=== PATIENT | male | born 2000 | race Caucasian/White ===

== ENCOUNTER 2018-01-15 02:50 | Emergency (ER) | payer BC ==
--- NOTE | 2018-01-15 02:55 | EDPHY ---
H & P Time Seen by Provider: 01/15/18 02:54 HPI/ROS: HPI CHIEF COMPLAINT: Alcohol Intoxication HISTORY OF PRESENT ILLNESS: 17-year-old male presents emergency room by EMS after was found highly intoxicated with alcohol and unable to be woken up by his roommates. EMS had a very hard time waking him up. Patient reports he had 10 drinks this evening. Patient presents emergency room highly intoxicated alcohol but alert. Slurring speech. Smells of alcohol and has vomit on his shirt. Past Medical History: Denies medical history Past Surgical History: Denies surgical history Social History: Large amount of alcohol this evening. Family History: Noncontributory ROS REVIEW OF SYSTEMS: A comprehensive 10 point review of systems is otherwise negative aside from elements mentioned in the history of present illness. Exam Constitutional Intoxicated, triage nursing summary reviewed, vital signs reviewed, Sleepy, smells of alcohol Eyes normal conjunctivae and sclera, horizontal beating nystagmus consistent acute alcohol intoxication, otherwise pupils equal and react to light HENT normal inspection, atraumatic, moist mucus membranes, no epistaxis, neck supple/ no meningismus, no raccoon eyes. Respiratory clear to auscultation bilaterally, normal breath sounds, no respiratory distress, no wheezing. Cardiovascular rate normal, regular rhythm, no murmur, no edema, distal pulses normal. Gastrointestinal soft, non-tender, no rebound, no guarding, normal bowel sounds, no distension, no pulsatile mass. Genitourinary no CVA tenderness. Musculoskeletal no midline vertebral tenderness, full range of motion, no calf swelling, no tenderness of extremities, no meningismus, good pulses, neurovascularly intact. Skin pink, warm, & dry, no rash, skin atraumatic. Neurologic sleepy, intoxicated with alcohol,, alert and oriented x 3, AAOx3, moves all 4 extremities equally, motor intact, sensory intact, CN II-XII intact , , normal vision, normal speech. Psychiatric normal mood/affect. Heme/Lymph/Immune no lymphadenopathy. Differential Diagnosis: Includes but is not limited to in a particular order acute alcohol intoxication, alcohol abuse, dehydration, electrolyte abnormality , nausea vomiting from acute alcohol intoxication Medical Decision Making: Plan for this patient breath alcohol, monitor sobriety. Monitor for worsening sedation from alcohol. Monitor nausea vomiting. Re-evaluation: Breath alcohol 165. At 2:56 a.m.. 0700AM: Patient sober. NAd. Resting. Ambulatory, has safe ride home. Source: Patient, EMS Constitutional: Initial Vital Signs Temperature (C) 36.7 C 01/15/18 02:56 Heart Rate 74 01/15/18 02:56 Respiratory Rate 16 01/15/18 02:56 Blood Pressure 123/74 H 01/15/18 02:56 O2 Sat (%) 96 01/15/18 02:56 O2 Delivery Mode Room Air Allergies/Adverse Reactions: No Known Allergies Allergy (Unverified 01/15/18 02:56) Home Medications: Medication Instructions Recorded NK [No Known Home Meds] 01/15/18 Medical Decision Making - Data Points Medications Given: Discontinued Medications Ondansetron HCl (Zofran Odt) 4 mg PO EDNOW ONE Stop: 01/15/18 03:15 Last Admin: 01/15/18 03:16 Dose: 4 mg Departure - Departure Disposition: Home, Routine, Self-Care Clinical Impression: Alcoholic intoxication Qualifiers: Complication of substance-induced condition: uncomplicated Qualified Code(s): F10.920 - Alcohol use, unspecified with intoxication, uncomplicated Condition: Good Instructions: Alcohol Intoxication (ED), Abuse of Alcohol (ED) Referrals: Patient,NotPresent [Unknown] - As per Instructions
[2018-01-15] MEDS ORDERED: ONDANSETRON DISINTEGRATING 4 MG TAB PO ONE ×2 (03:14)
[2018-01-15 06:10] VITALS: BP 119/69
== END 2018-01-15 07:00 | disposition home or self-care (01) ==
DX: F10.929 Alcohol use, unspecified with intoxication, unspecified (principal)

== ENCOUNTER 2018-03-29 20:18 | Emergency (ER) | payer BC ==
[2018-03-29 20:25] VITALS: BP 124/94
--- NOTE | 2018-03-29 20:31 | EDPHY ---
H & P Time Seen by Provider: 03/29/18 20:30 HPI/ROS: CHIEF COMPLAINT: [] HISTORY OF PRESENT ILLNESS: [] ROS As detailed in HPI Smoking Status: Never smoked Physical Exam: General: Alert and oriented. Nontoxic appearing. No acute distress HEENT: Pupils PERRLA. No oral lesions. Cardiopulmonary: Regular rate and rhythm. No lower extremity edema Skin: [place] warm and dry. No lesions. Muscle skeletal: Moving all 4 extremities. Equal strength in upper extremities and lower extremities. Ambulatory. Constitutional: Initial Vital Signs Temperature (C) 36.6 C 03/29/18 20:23 Heart Rate 93 03/29/18 20:23 Respiratory Rate 18 03/29/18 20:23 Blood Pressure 124/94 H 03/29/18 20:23 O2 Sat (%) 94 03/29/18 20:23 O2 Delivery Mode Room Air Allergies/Adverse Reactions: No Known Allergies Allergy (Unverified 01/15/18 02:56) Home Medications: Medication Instructions Recorded NK [No Known Home Meds] 01/15/18 Departure - Departure Condition: Good Referrals: NONE *PRIMARY CARE P,. [Primary Care Provider] - As per Instructions
--- NOTE | 2018-03-29 21:14 | EDPHY ---
H & P Time Seen by Provider: 03/29/18 20:30 HPI/ROS: CHIEF COMPLAINT: Sore throat and possible meningitis exposure HISTORY OF PRESENT ILLNESS: Patient is a 17-year-old male here with concern for sore throat that started this morning. States he lives in the same dormitory as the patient was admitted to this hospital today with a diagnosis of meningitis. He can recall no direct exposure to the patient with meningitis. Denies any exposure to strep or mono. He has no significant past medical history. He denies any cough or runny nose does report slight body aches today. Denies severe headache or neck stiffness. ROS As detailed in HPI Smoking Status: Never smoked Physical Exam: General: Alert and oriented. Nontoxic appearing. No acute distress HEENT: Pupils PERRLA. No oral lesions. Cardiopulmonary: Regular rate and rhythm. No lower extremity edema Skin: [place] warm and dry. No lesions. Muscle skeletal: Moving all 4 extremities. Equal strength in upper extremities and lower extremities. Ambulatory. Constitutional: Initial Vital Signs Temperature (C) 36.6 C 03/29/18 20:23 Heart Rate 93 03/29/18 20:23 Respiratory Rate 18 03/29/18 20:23 Blood Pressure 124/94 H 03/29/18 20:23 O2 Sat (%) 94 03/29/18 20:23 O2 Delivery Mode Room Air Allergies/Adverse Reactions: No Known Allergies Allergy (Unverified 01/15/18 02:56) Home Medications: Medication Instructions Recorded NK [No Known Home Meds] 01/15/18 Medical Decision Making ED Course/Re-evaluation: 17-year-old male here with sore throat for 24 hr. He is afebrile and has no tonsillar exudate but does have mild erythema. He has no meningeal signs. Per his history he has no direct exposure to be meningitis and thus there is no indication for prophylaxis. We did discuss indications for return to the emergency room. - Data Points Laboratory Results: 03/29/18 20:40 Group A Strep Screen NEGATIVE (NEGATIVE) Group A Strep DNA Pending Departure - Departure Disposition: Home, Routine, Self-Care Clinical Impression: Pharyngitis Instructions: Pharyngitis (ED) Additional Instructions: Return to the ER if he develops any worsening symptoms such as stiff neck, high fever, confusion. Referrals: NONE *PRIMARY CARE P,. [Primary Care Provider] - As per Instructions [facility],. [Clinic] - As per Instructions
[2018-03-30 11:56] LABS: GROUP A STREP DNA (THROAT) NEGATIVE (NEGATIVE)
== END 2018-03-29 21:15 | disposition home or self-care (01) ==
DX: J02.9 Acute pharyngitis, unspecified (principal)